=== PATIENT | male | born 1980 | race Caucasian/White ===

== ENCOUNTER 2016-07-20 17:32 | Emergency (ER) | payer SELFPAY ==
[2016-07-20 17:45] VITALS: TEMP 99.7; BMI 26.6
[2016-07-20 18:08] VITALS: BP 129/87; PULSE 87
[2016-07-20] MEDS ORDERED: LEVOFLOXACIN 750 MG TAB PO ONE (18:42)
--- NOTE | 2016-07-20 18:46 | EDPRACDOC ---
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 Mode of Arrival: Ambulance Home Medications: Home Medications Lisinopril [Prinivil] 20 mg PO DAILY 12/03/12 Alprazolam [Xanax] 1 mg PO BID PRN 07/20/16 Levofloxacin [Levaquin] 750 mg PO DAILY #10 tablet 07/20/16 Oxycodone HCl [Oxycodone Immediate Release] 30 mg PO DAILY PRN 07/20/16 Oxymorphone HCl [Opana ER] 40 mg PO Q12H 07/20/16 Allergies/Adverse Reactions: Allergies Allergy/AdvReac Type Severity Reaction Status Date / Time Penicillins Allergy Severe Hives* Verified 07/20/16 18:16 [place]ws Allergy Severe Anaphylaxis Uncoded 07/20/16 18:16 * - History of Present 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 Pt arrives more alert, talkative. He was suspected to have overdosed. However, pt denies and reports that he was recently admitted to [facility] where he was "septic." He voices concerns that he needs abx. He reports he left AMA today after they had given him OxyContin and other pain meds which explains why he is drowsy. He reports he left because he has to make a chiropractor appt tomorrow morning and didn't they would let him leave. I discussed case with hospitalist at [facility]. He cared for pt this AM. Pt was admitted last night due to fever, cough, WBC of 14. He was diagnosed with pneumonia. He was given abx to cover aspiration pneumonia, vancomycin and levaquin due to his PCN allergy. He denied drug use, but his UDS was + for amphetamines, BZN's, opiates, and cocaine. He wanted to leave last night. He was convinced to stay. This AM, his sister came to visit, and apparently afterwards, the patient left without instructions or any prescriptions. PT reports he hurts "all over." He is drowsy, cannot stay awake , yet also seems anxious and his limbs shake subtly. - Treatment Prior to ED Arrival Reported Medications/Treatment UTILITIES [employer] EMS Treatment BLS IV No ED Past Medical History - History Reviewed Yes Nurses notes reviewed and agree except as marked - Patient Medical History Cardiac History: Reports: Coronary Artery Disease, Hypertension, Heart Attack, Cardiac Catheterization (STENTS), Hypercholesterolemia. Denies: Valvular Heart Disease GI/ History: Reports: Renal Failure (ACUTE PHASE DUE TO DEHYDRATION), Gastroesophageal Reflux. Denies: Ulcer, Pancreatitis Musculoskeletal History: Reports: Arthritis, Rheumatoid Arthritis. Denies: Gout Psychological History: Reports: Depression, Anxiety Systemic History: Denies: Cancer, Anemia, Hyperthyroidism, Lupus Additional Past Medical History: CHRONIC PAIN (FOOT) - PRIOR PAIN CONTROL PT Surgical History: Reports: Cardiac Catheterization (STENTS), Tonsillectomy/ Adnoidectomy, Other (PTCA) - Family Medical History Reports: Hypertension (PARENTS & SISTER), Diabetes (PARENTS), Cancer ( GRANDMOTHER COLON,), Cardiac Disorders (FATHER). Denies: Stroke - Social Medical History Smoking Status: Heavy tobacco smoker (5 or more cigarettes/day or daily pipe/ cigar) EDM Review of Systems - Review of Systems ROS Unobtainable: Yes Review of systems cannot be obtained due to the patient's medical condition (+ for myalgias) - Physical Exam Constitutional: Somnolent, Well nourished, Well appearing Oriented to: Person, Not Oriented Last recorded Vital Signs: Last Vital Signs Temp 99.7 F 07/20/16 17:41 Pulse 87 07/20/16 17:56 Resp 18 07/20/16 17:56 BP 129/87 07/20/16 17:56 Pulse Ox 89 L 07/20/16 17:56 Oxygen Pulse Oxygen Saturation 89 O2 Device Room Air Oxygen Flow Rate Fraction of Inspired Oxygen ( FIO2) - HEENT Head: Normal Eye Exam: negative: Conjunctival Injection, Scleral Icterus Oropharynx: Other (dry) Nose: Other. negative: Congestion, Discharge (pt keeps rubbing his nose with his finger, indicative of patient having had narcotics) Neck: Normal. negative: Crepitus, In Collar, Meningeal Signs, Step off - Respiratory/Cardiovascular Respiratory: Normal - CTA. negative: Tachypnea, Wheezes Cardiovascular: Normal - GI Auscultation: Normal Tenderness: Non tender - Musculoskeletal Back: Normal Extremities: Normal - Integumentary Skin: Normal - Neurologic Memory Impaired: negative: Short-term Motor Function: Unable to Test Cranial Nerve: Unable to Test Mood Description: Anxious, Other (somnolent). negative: Combative, Depressed Thought: Flight of Ideas, Rambling Conversation. negative: Coherent, Delusions , Paranoia Perception: negative: Auditory Hallucinations, Visual Hallucinations - Re-evaluation Re-evaluation 1 Re-evaluation Time: 19:02 (PT is sitting up, no longer slurring, awake, communicative withtou falling asleep. Pt is free to be discharged now. Pt is given levaquin here. I am not comfortable giving him medications that cause somnolence and resp symptoms. Pt cautioned against taking too many pain meds. Pt offered tylenol here. ) - Additional Information Additional Information: 18:30 I suspect pt took more substances and is lying to me. Pt was + for multiple drugs already, no need to test further. Pt is somnolent, somewhat delirious and O2 sats will dwindle into the upper 80's. Pt is not cleared medically and does not have capacity to understand his conditions. I am not comfortable giving him more narcotics at this state as I believe medically he is overmedicated with sedatives, and thus hypoexmic. Will give oral levaquin to cover for suspected pneumonia. Otherwise will monitor until pt is less hypoxemic and somnolent and has demonstrated capactiy to function and make sound decisions. Decision Time to Discharge: 19:03 - Departure Yes I personally saw and evaluated the patient. Disposition: Home Condition: Stable Final Diagnosis: Sedative abuse Drug withdrawal Qualifiers: Substance type: cocaine Qualified Code(s): F14.23 - Cocaine dependence with withdrawal Instructions: Accidental Overdose, Adult Overdose, Aspiration Pneumonia (GEN) Education/Counseling Given To: Patient Education/Counseling Given Regarding: Diagnosis, Treatment, Prognosis, Follow Up Referrals: None,No Provider [Primary Care Provider] - One Week Prescriptions: Levofloxacin [Levaquin] 750 mg PO DAILY #10 tablet
[2016-07-20] MEDS ORDERED: ACETAMINOPHEN 325 MG/TAB TABLET PO ONE (19:06)
== END 2016-07-20 19:20 | disposition left against medical advice (07) ==
LOC: ED 17:32
DX: F13.10 Sedative, hypnotic or anxiolytic abuse, uncomplicated (principal); F15.93 Other stimulant use, unspecified with withdrawal
CPT/HCPCS: 99284; J3490